=== PATIENT | female | born 1965 | race Caucasian/White ===

== ENCOUNTER → 2018-02-27 | Outpatient (CLI) | payer BC ==
--- NOTE | 2018-02-27 18:12 | RAD ---
Bone mineral density exam History: Postmenopausal Comparison: None Findings: Bone mineral density examination utilizing DEXA was performed. Right femur total bone mineral density of 833 mg/cm2 corresponds with a T score -1.0, Z score -0.7. Right femoral neck bone mineral density of 738 mg/cm2 corresponds with a T score of -1.6 and a Z score -1.0. The bone mineral density of the lumbar spine was 1.036 g/cm2 which corresponds with a T-score of -1.2, Z score -0.9. By World [employer] on Osteoporosis criteria, a T score of 0 to-1 SD is considered to be within normal limits. A T score of -1 to -2.5 SD is considered osteopenia. A T score less than -2.5 SD is considered osteoporosis Impression: 1. There is osteopenia of the lumbar spine. Right femur total bone mineral density is considered within normal limits although borderline osteopenia, right femoral neck corresponding with osteopenia. Electronically signed by: Artur Ledbetter MD (02/27/2018 6:08 PM) [id number]
--- NOTE | 2018-03-04 08:30 | RAD ---
DATE: 02/27/2018 12:30 PM EXAM: MAMMO DAVI SARAHY JARAMILLO, BREAST LEFT HISTORY: imaging evaluation of a region of left breast pain COMPARISON: Prior mammographic imaging dating back to 10/23/2011 Bilateral CC and MLO views of the breasts were performed. Bilateral breast tomosynthesis was performed in CC and MLO projections. This study was interpreted with the benefit of Computerized Aided Detection (CAD ). Breast Density: The breast parenchyma is primarily fatty replaced. Breast parenchyma level density A. FINDINGS: No suspicious masses, microcalcifications or architectural distortion is present to suggest malignancy in either breast. The visualized axillae are unremarkable. No definite abnormality was seen in the region of pain noted by metallic BB. Therefore ultrasound was performed to further assess the site of left breast pain. ULTRASOUND TECHNIQUE: Targeted high resolution sonography of the region of left breast pain was performed. ULTRASOUND FINDINGS: Sonographic evaluation of the area of focal demonstrates unremarkable fibroglandular tissue without evidence for suspicious cystic or solid mass. IMPRESSION: No mammographic evidence of malignancy. BI-RADS CATEGORY: 1 NEGATIVE RECOMMENDED FOLLOW-UP: 12M 12 MONTH FOLLOW-UP Annual screening mammography is recommended, unless clinically indicated sooner based on symptoms or change in physical exam. The patient's focal breast pain/tenderness should be further managed clinically. PQRS compliance statement: Patient information was entered into a reminder system with a target due date 02/28/2019 for the next mammogram. Mammography is a sensitive method for finding small breast cancers, but it does not detect them all and is not a substitute for careful clinical examination. A negative mammogram does not negate a clinically suspicious finding and should not result in delay in biopsying a clinically suspicious abnormality. "Our facility is accredited by the [employer] Mammography [employer]." MTDD
== END | disposition home or self-care (01) ==
LOC: DXRAD 09:30
PROVIDERS: ATTEND Obstetrics & Gynecology
DX: M85.88 Other specified disorders of bone density and structure, other site (principal); N64.4 Mastodynia; Z78.0 Asymptomatic menopausal state
CPT/HCPCS: 77066; 77080; G0279; 77062

== ENCOUNTER → 2018-03-01 | Outpatient (CLI) | payer BC ==
--- NOTE | 2018-03-04 08:29 | RAD ---
DATE: 02/27/2018 12:30 PM EXAM: MAMMO DAVI SARAHY JARAMILLO, BREAST LEFT HISTORY: imaging evaluation of a region of left breast pain COMPARISON: Prior mammographic imaging dating back to 10/23/2011 Bilateral CC and MLO views of the breasts were performed. Bilateral breast tomosynthesis was performed in CC and MLO projections. This study was interpreted with the benefit of Computerized Aided Detection (CAD ). Breast Density: The breast parenchyma is primarily fatty replaced. Breast parenchyma level density A. FINDINGS: No suspicious masses, microcalcifications or architectural distortion is present to suggest malignancy in either breast. The visualized axillae are unremarkable. No definite abnormality was seen in the region of pain noted by metallic BB. Therefore ultrasound was performed to further assess the site of left breast pain. ULTRASOUND TECHNIQUE: Targeted high resolution sonography of the region of left breast pain was performed. ULTRASOUND FINDINGS: Sonographic evaluation of the area of focal demonstrates unremarkable fibroglandular tissue without evidence for suspicious cystic or solid mass. IMPRESSION: No mammographic evidence of malignancy. BI-RADS CATEGORY: 1 NEGATIVE RECOMMENDED FOLLOW-UP: 12M 12 MONTH FOLLOW-UP Annual screening mammography is recommended, unless clinically indicated sooner based on symptoms or change in physical exam. The patient's focal breast pain/tenderness should be further managed clinically. PQRS compliance statement: Patient information was entered into a reminder system with a target due date 02/28/2019 for the next mammogram. Mammography is a sensitive method for finding small breast cancers, but it does not detect them all and is not a substitute for careful clinical examination. A negative mammogram does not negate a clinically suspicious finding and should not result in delay in biopsying a clinically suspicious abnormality. "Our facility is accredited by the [employer] Mammography [employer]." MTDD
== END | disposition home or self-care (01) ==
LOC: US 08:39
PROVIDERS: ATTEND Obstetrics & Gynecology
DX: R92.8 Other abnormal and inconclusive findings on diagnostic imaging of breast (principal)
CPT/HCPCS: 76641